=== PATIENT | male | born 1955 | race Hispanic/Latino ===

== ENCOUNTER 2017-08-27 07:31 | Emergency (ER) | payer MEDICARE ==
[~2017-08-27 07:31] MED LIST: ALPR-411 PO; AMLO5TAB2 PO; ASPI-555 PO; BISA5TAB12 PO; HYDR100T27 PO; LISI40TA4 PO; METO100T14 PO; OMEP40CA37 PO; SEVE800T7 PO; TRAM50TA4 PO
[2017-08-27 08:33] LABS: ALBUMIN 2.9 g/dL (3.5-5.0); BILIRUBIN,TOTAL 0.4 mg/dL (0.2-1.0); CREATINE KINASE MB 1.1 ng/mL (0.5-3.6); CREATININE 7.4 mg/dL (0.5-1.5); TOTAL PROTEIN, SERUM 7.9 g/dL (6.0-8.3)
[2017-08-27 09:11] LABS: BASOPHILS % (AUTO) 1.1 % (0.0-5.0); EOSINOPHILS % (AUTO) 1.3 % (0.0-8.0); LYMPHOCYTES % (AUTO) 19.5 % (21.0-51.0); MEAN CORPUSCULAR HGB CONC 34.2 g/dL (32.0-36.0); MEAN CORPUSCULAR VOLUME 102.2 fL (79-99); MONOCYTES % (AUTO) 12.7 % (3.0-13.0); NEUTROPHILS % (AUTO) 65.4 % (40.0-77.0); NUCLEATED RED BLOOD CELLS 0.1 % (0.0-0.19); PLATELET COUNT (AUTO) 308 K/uL (130-400); RED BLOOD CELL COUNT(AUTO) 2.93 MIL/uL (4.50-6.20); RED CELL DISTRIBUTION WIDTH 14.3 % (11.0-15.5); WHITE BLOOD COUNT (AUTO) 7.4 K/uL (4.8-10.8)
[2017-08-27 09:28] LABS: POTASSIUM 5.3 mmol/L (3.5-5.1)
[2017-08-27 09:39] LABS: PARTIAL THROMBOPLASTIN TIME 29.7 SEC (26.3-35.5)
[2017-08-27 09:58] LABS: INR 1.02 (0.85-1.15); PROTHROMBIN TIME 10.7 SEC (9.6-11.6)
[2017-08-27] MEDS ORDERED: TRAMADOL HCL 50 MG TABLET ONE (10:15)
[2017-08-27] MEDS ORDERED: CYCLOBENZAPRINE HCL 10 MG TABLET ONE (10:15)
== END 2017-08-27 11:34 | disposition home or self-care (01) ==
LOC: EDH 07:31
DX: M79.602 Pain in left arm (principal); M54.6 Pain in thoracic spine; M54.2 Cervicalgia; I12.0 Hypertensive chronic kidney disease with stage 5 chronic kidney disease or end stage renal disease; E11.22 Type 2 diabetes mellitus with diabetic chronic kidney disease; N18.6 End stage renal disease; Z99.2 Dependence on renal dialysis; Z79.899 Other long term (current) drug therapy
CPT/HCPCS: 36415; 71010; 72125; 73030; 80053; 82553; 84484; 85025; 85610; 85730; 93005